=== PATIENT | female | born 1980 | race Two or more races ===

== ENCOUNTER 2018-05-13 17:50 | Outpatient (CLI) | payer MEDICAID ==
[2018-05-13 19:05] LABS: APPEARANCE,URINE SLIGHTLY-CLOUDY; BILIRUBIN,URINE NEGATIVE (NEGATIVE); COLOR,URINE AMBER; GLUCOSE, URINE NEGATIVE (NEGATIVE); KETONES,URINE TRACE mg/dL (NEGATIVE); LEUKOCYTE ESTERASE,URINE NEGATIVE (NEGATIVE); NITRITE,URINE NEGATIVE (NEGATIVE); PROTEIN,URINE 30 mg/dL (NEGATIVE); URINE SPECIFIC GRAVITY 1.033
[2018-05-13 19:06] LABS: AMNISURE (ROM) NEGATIVE (NEGATIVE)
[2018-05-13 19:14] LABS: URINE AMPHETAMINES SCREEN NEGATIVE; URINE BARBITURATES SCREEN NEGATIVE; URINE BENZODIAZEPINES SCREEN NEGATIVE; URINE COCAINE SCREEN NEGATIVE; URINE MARIJUANA (THC) SCREEN NEGATIVE; URINE METHADONE SCREEN NEGATIVE; URINE PHENCYCLIDINE SCREEN NEGATIVE
--- NOTE | 2018-05-13 19:52 | Non Stress Test Report ---
Non Stress Test Datetime Report Generated by CPN: 05/13/2018 19:52 DEMOGRAPHIC Test Number: 1 EGA NST: 32.5 INDICATION Indication for Study: Ordered by Provider URINE RESULTS Urine Protein, NST: Negative Urine Ketones - NST: Positive Urine Glucose - NST: Negative Urine Blood - NST: Negative MONITORING Monitor Explained: Monitor Explained; Test Explained; Patient Verbalized Understanding Time on Monitor: 05/13/2018 18:50 Time off Monitor: 05/13/2018 19:49 NST Duration: 59 NST INTERVENTIONS NST Interventions: PO Hydration Physician Notified NST: Dr. Aman BABY A: [id number] BABY A Movement : Present Contraction Frequency : irregular FHR Baseline : 135 Accelerations : Prolonged Decelerations : None Variability : Moderate 6-25bpm NST Review: Meets Criteria for Reactive NST NST Review and Verified By : ISSAC Perez NST Results: Reactive NST REPORT Report Trigger: Send Report
[2018-05-13] MEDS ORDERED: RINGERS SOLUTION,LACTATED 1,000 ML IV PRN (20:12)
[2018-05-13] MEDS ORDERED: MAG HYDROX/AL HYDROX/SIMETH SUSP 30 ML UDCUP PO ONE ×2 (20:12→21:15)
[2018-05-13] MEDS ORDERED: MAG HYDROX/AL HYDROX/SIMETH SUSP 30 ML UDCUP ONE (20:13)
[2018-05-13 20:27] LABS: T.VAGINALIS (WET MOUNT) NO TRICHOMONAS SEEN; YEAST (WET MOUNT) NO YEAST SEEN
[2018-05-13 20:28] LABS: BACTERIA (WET MOUNT) 4+ BACTERIA SEEN; EPITHELIALS (WET MOUNT) 3+ EPITHELIALS SEEN; WBCS (WET MOUNT) 1+ WBCS SEEN
[2018-05-13 21:56] LABS: CHLAM PCR NOT DETECTED (NOT DETECT); GON PCR NOT DETECTED (NOT DETECT)
== END 2018-05-13 22:13 | disposition home or self-care (01) ==
LOC: LC 17:50
PROVIDERS: ATTEND Obstetrics & Gynecology
PROC: 4A1HXCZ Monitoring of Products of Conception, Cardiac Rate, External Approach (ICD-10-PCS; principal; 2018-05-13)
DX: O47.03 False labor before 37 completed weeks of gestation, third trimester (principal); O36.8330 Maternal care for abnormalities of the fetal heart rate or rhythm, third trimester, not applicable or unspecified; O09.523 Supervision of elderly multigravida, third trimester; Z3A.32 32 weeks gestation of pregnancy
CPT/HCPCS: 59025; 84112; 87210; 81001; 80307; 87491; 87591; J3490

== ENCOUNTER 2018-06-27 10:32 | Inpatient (IN) | payer MEDICAID ==
[2018-06-27 11:24] LABS: ABSOLUTE EOSINOPHILS # (AUTO) 0.1 10^3/uL (0.0-0.6); ABSOLUTE LYMPHOCYTES (AUTO) 2.7 10^3/uL (0.5-4.7); ABSOLUTE MONOCYTES (AUTO) 0.6 10^3/uL (0.1-1.4); ABSOLUTE NEUT (AUTO) 7.9 10^3/uL (1.7-8.2); BASOPHILS % (AUTO) 0.3 % (0-2); EOSINOPHILS % (AUTO) 0.9 % (0-6); HEMOGLOBIN 13.2 g/dL (12.0-15.5); LYMPHOCYTES % (AUTO) 23.6 % (13-45); MEAN CORPUSCULAR HEMOGLOBIN 29.9 pg (27.0-33.4); MEAN CORPUSCULAR HGB CONC 32.9 g/dL (32.0-36.0); MEAN CORPUSCULAR VOLUME 91 fl (80-97); MONOCYTES % (AUTO) 5.4 % (3-13); PLATELET COUNT 224 10^3/uL (150-450); RED BLOOD COUNT 4.41 10^6/uL (3.72-5.28); RED CELL DISTRIBUTION WIDTH 15.9 % (11.5-14.0); SEGMENTED NEUTROPHILS % (AUTO) 69.8 % (42-78); TOTAL CELLS COUNTED % (AUTO) 100 %; WHITE BLOOD COUNT 11.3 10^3/uL (4.0-10.5)
[2018-06-27] MEDS ORDERED: IBUPROFEN 800 MG TABLET ONE (12:10)
--- NOTE | 2018-06-27 12:13 | ER Document Report ---
ED General - General Stated Complaint: LABOR Mode of Arrival: Ambulatory Information source: Patient, Relative, [facility] Records Notes: 38-year-old female at 39 weeks presents via private vehicle in active labor. I was called out to the parking lot where the patient was found in the front seat. Manual exam performed and baby's head felt immediately. Patient was instructed not to push and picked up out of the car placed on a stretcher and ran back to the trauma bay where the head was immediately delivered. TRAVEL OUTSIDE OF THE [place] IN LAST 30 DAYS: No - HPI Onset: Just prior to arrival Onset/Duration: Sudden Quality of pain: Cramping Severity: Severe Associated symptoms: None Exacerbated by: Denies Relieved by: Denies Similar symptoms previously: No Recently seen / treated by doctor: Yes - Related Data Allergies/Adverse Reactions: No Known Allergies Allergy (Verified 05/13/18 18:33) Past Medical History - General Information source: Patient, Relative, [facility] Records - Social History Smoking Status: Unknown if Ever Smoked Frequency of alcohol use: None Drug Abuse: None Lives with: Family Family History: Reviewed & Not Pertinent Patient has suicidal ideation: No Patient has homicidal ideation: No - Medical History Medical History: Negative Past Surgical History: Reports: Hx Section Review of Systems - Review of Systems -: Yes ROS unobtainable due to patient's medical condition Physical Exam - Notes Notes: PHYSICAL EXAMINATION: GENERAL: in active labor, pushing HEAD: Atraumatic, normocephalic. LUNGS: No respiratory distress HEART: Tachycardic ABDOMEN: Gravid Female : Cervix 100% effaced, . Musculoskeletal: Normal range of motion, no pitting or edema. No cyanosis. NEUROLOGICAL: AOx3 SKIN: Warm, Dry, normal turgor, no rashes or lesions noted. Course - Re-evaluation Re-evalutation: 06/28/18 16:10 Procedure: 38-year-old female at 39 weeks presented in active labor. Patient was found in the front seat of her mother's car pushing and . She was placed immediately on a stretcher and brought back to the emergency department. Patient in lithotomy position. Because of the imminent delivery the patient was not able to be prepped and draped in the usual sterile fashion. Patient was asked to push and the head delivered spontaneously. A nuchal cord was checked and none noted, anterior shoulder delivered easily followed by posterior shoulder. OB team arrived at that time. The remainder of the infant was easily delivered and the oropharynx and nasopharynx was bulb suctioned. OB/ [employer] attending clamped and cut the cord. Cord blood obtained. The was passed to the mother and then to the warmer and assessed. Placenta delivered by SCRAP[employer] attending. Pitocin administered. Female born at 10:25 AM 2015. of 9. Female was found to be active with strong pulse, spontaneous respirations , cried immediately, pink in color. Patient and infant transferred to labor and delivery. 06/28/18 16:20 - Laboratory Result Diagrams: 06/28/18 07:58 Discharge - Discharge Condition: Good Disposition: HOME, SELF-CARE Admitting Provider: [facility] Admitted: Labor and Delivery
[2018-06-27] MEDS ORDERED: PROMETHAZINE HCL 25 MG SUPP.RECT PR PRN (12:26)
[2018-06-27] MEDS ORDERED: PROMETHAZINE HCL INJ 25 MG/1 ML VIAL IV PRN (12:26)
[2018-06-27] MEDS ORDERED: GLYCERIN/WITCH HAZEL LEAF 1 EACH MED..PAD TP PRN (12:26)
[2018-06-27] MEDS ORDERED: PSEUDOEPHEDRINE HCL 30 MG TABLET PO PRN (12:26)
[2018-06-27] MEDS ORDERED: MEASLES,MUMPS&RUBELLA VACC/PF 0.5 ML VIAL SUBCUT PRN (12:26)
[2018-06-27] MEDS ORDERED: DIPH/PERTUSS(ACELL)/TETANUS VAC/PF 0.5 ML SYR (>=10YO) IM PRN (12:26)
[2018-06-27] MEDS ORDERED: DIBUCAINE 1% OINTMENT 28 GM TP PRN (12:26)
[2018-06-27] MEDS ORDERED: ACETAMINOPHEN 650 MG SUPP.RECT PR PRN (12:26)
[2018-06-27] MEDS ORDERED: BENZOCAINE/MENTHOL AEROSOL SPRAY 56 ML TOP PRN (12:26)
[2018-06-27] MEDS ORDERED: DIPHENHYDRAMINE HCL 25 MG CAPSULE PO PRN (12:26)
[2018-06-27] MEDS ORDERED: PROMETHAZINE HCL 25 MG TABLET PO PRN (12:26)
[2018-06-27] MEDS ORDERED: OXYTOCIN/NORMAL SALINE 20 UNIT/1,000 ML RTUINJ IV PRN (12:26)
[2018-06-27] MEDS ORDERED: NA PHOS,M-B/NA PHOS,DI-BA (ADULT) 133 ML ENEMA PR PRN (12:26)
[2018-06-27] MEDS ORDERED: MAGNESIUM HYDROXIDE SUSP 30 ML UDCUP PO PRN (12:26)
--- NOTE | 2018-06-27 13:35 | Delivery Summary ---
Del Sum A-C Datetime Report Generated by CPN: 06/27/2018 13:35 DELIVERY PERSONNEL DELIVERY PERSONNEL: [id number] Delivery Doctor:: Susan Newton MD Labor and Delivery Nurse:: Kenan Zamora RN Nursery Nurse:: Hetal Quan RN MATERNAL INFORMATION Delivery Anesthesia: None Medications After Delivery: Pitocin Drip 20 Units/1000ml NSS Estimated Blood Loss (ml): 200 Maternal Complications: Precipitous Labor (<3hrs) Provider Comments: pls see H_P for further details. Delivered by myself in the ER without incident. LABOR SUMMARY EDC: 07/03/2018 00:00 No. Babies in Womb: 1 Attempted: Yes Labor Anesthesia: None LABOR INFORMATION Reason for Induction: Not Applicable Oxytocin: N/A Group B Beta Strep: unknown Antibiotics # of Doses: 0 Antibiotics Time of Last Dose: 0 Name of Antibiotic Given: 0 Steroids Given: None Reason Steroids Not Administered: Not Applicable Other Reason Not Administered: n/a STAGES OF LABOR Stage 3 hr: 0 Stage 3 min: 4 VAGINAL DELIVERY Episiotomy: None Laceration #1: None Laceration Extension #1: N/A Laceration Repair: Not Applicable BABY A INFORMATION Delivery Date/Time: 06/27/2018 10:20 Method of Delivery: Vaginal Born in Route : No : N/A Forceps: N/A Vacuum Extraction: N/A Shoulder Dystocia : No PRESENTATION/POSITION BABY A Presentation: Cephalic Cephalic Presentation: Vertex Vertex Position: Left Occipital Anterior Breech Presentation: N/A PLACENTA INFORMATION BABY A Placenta Delivery Time : 06/27/2018 10:24 Placenta Method of Delivery: Spontaneous Placenta Status: Delivered SCORES BABY A Heart Rate 1 min: >100 bpm Resp Effort 1 min: Good Cry Reflex Irritability 1 min: Cough or Sneeze or Pulls Away Muscle Tone 1 min: Active Motion Color 1 min: Body [place], Extremities Blue Resuscitation Effort 1 min: Tactile Stimulation SCORE 1 MIN: 9 Heart Rate 5 min: >100 bpm Resp Effort 5 min: Good Cry Reflex Irritability 5 min: Cough or Sneeze or Pulls Away Muscle Tone 5 min: Active Motion Color 5 min: Completely [place] Resuscitation Effort 5 min: Tactile Stimulation SCORE 5 MIN: 10 INFORMATION BABY A Gestational Age at Delivery: 39.1 Gestational Status: Full Term- 39- 40.6 Weeks Outcome : Liveborn Infant Condition : Stable Infant Sex: Female IDENTIFICATION BABY A Verification Date/Time: 06/27/2018 10:56 ID Band Number: [id number] Mother's Name Verified: Yes Infant RN Verifying Infant: Kenan Zamora, RN Hetal Kadeem, RN WEIGHT/LENGTH BABY A Infant Birthweight (gm): 2820 Weight (lb): 6 Infant Weight (oz): 3 Length (in): 19.50 Length (cm): 49.53 CORD INFORMATION BABY A No. Cord Vessels: 3 Nuchal Cord : N/A Cord Blood Taken: Yes-For Eval (Mom's Blood Type - or O+) Suction: None ASSESSMENT BABY A Skin to Skin: Yes Skin to Skin Time (min): 90 BABY B INFORMATION : N/A SIGNATURES Signature: with User ID: [email or web address]
[2018-06-27] MEDS: IBUPROFEN 800 MG TABLET PO SCH ×2 (13:51→21:32)
[2018-06-27] MEDS: DOCUSATE SODIUM 100 MG CAPSULE PO SCH (17:32)
[2018-06-27] MEDS: FERROUS SULFATE 325 MG TABLET PO SCH (17:32)
[2018-06-27 17:53] LABS: APPEARANCE,URINE CLEAR; BILIRUBIN,URINE NEGATIVE (NEGATIVE); COLOR,URINE YELLOW; GLUCOSE, URINE NEGATIVE (NEGATIVE); KETONES,URINE NEGATIVE (NEGATIVE); LEUKOCYTE ESTERASE,URINE TRACE (NEGATIVE); NITRITE,URINE NEGATIVE (NEGATIVE); PROTEIN,URINE NEGATIVE (NEGATIVE); URINE SPECIFIC GRAVITY 1.006; UROBILINOGEN,URINE NEGATIVE mg/dL (<2.0)
[2018-06-27 18:12] LABS: URINE AMPHETAMINES SCREEN NEGATIVE; URINE BARBITURATES SCREEN NEGATIVE; URINE BENZODIAZEPINES SCREEN NEGATIVE; URINE COCAINE SCREEN NEGATIVE; URINE MARIJUANA (THC) SCREEN NEGATIVE; URINE METHADONE SCREEN NEGATIVE; URINE PHENCYCLIDINE SCREEN NEGATIVE
[2018-06-27] MEDS: FAMOTIDINE 20 MG TABLET PO SCH (21:31)
[2018-06-28] MEDS: IBUPROFEN 800 MG TABLET PO SCH ×3 (06:15→22:40)
[2018-06-28 08:39] LABS: HEMOGLOBIN 12.3 g/dL (12.0-15.5); MEAN CORPUSCULAR HEMOGLOBIN 30.4 pg (27.0-33.4); MEAN CORPUSCULAR HGB CONC 33.3 g/dL (32.0-36.0); MEAN CORPUSCULAR VOLUME 91 fl (80-97); PLATELET COUNT 210 10^3/uL (150-450); RED BLOOD COUNT 4.05 10^6/uL (3.72-5.28); RED CELL DISTRIBUTION WIDTH 15.9 % (11.5-14.0); WHITE BLOOD COUNT 9.8 10^3/uL (4.0-10.5)
--- NOTE | 2018-06-28 11:21 | PDOC PROGRESS REPORT ---
Subjective-OB Progress Note for:: 06/28/18 Subjective: Pt doing well, no concerns. She reports light bleeding, reg diet and voiding without difficulty. Physical Exam (OB) Vital Signs: Temp Pulse Resp BP Pulse Ox 98.1 F 89 18 118/63 96 06/27/18 19:56 06/27/18 19:56 06/27/18 19:56 06/27/18 19:56 06/27/18 19:56 Intake & Output 06/27/18 06/28/18 06/29/18 06:59 06:59 06:59 Intake Total 650 Balance 650 Weight 73.18 kg - PIH/Pre-Eclampsia DTR's: 2 + Clonus: Negative Headache: Absent Epigastric Pain: No Visual Changes: No - Lochia Lochia Amount: Scant < 10 ml Lochia Color: Rubra/Red - Abdomen Description: Soft Hernia Present: No Fundal Description: Firm, Midline Fundal Height: u/u - u/2 Objective-Diagnostic Laboratory: 06/28/18 07:58 06/27/18 06/27/18 06/27/18 11:00 11:00 17:35 WBC 11.3 H RBC 4.41 Hgb 13.2 Hct 40.0 MCV 91 MCH 29.9 MCHC 32.9 RDW 15.9 H Plt Count 224 Seg Neutrophils % 69.8 Lymphocytes % 23.6 Monocytes % 5.4 Eosinophils % 0.9 Basophils % 0.3 Absolute Neutrophils 7.9 Absolute Lymphocytes 2.7 Absolute Monocytes 0.6 Absolute Eosinophils 0.1 Absolute Basophils 0.0 Urine Color YELLOW Urine Appearance CLEAR Urine pH 7.0 Ur Specific [place] 1.006 Urine Protein NEGATIVE Urine Glucose (UA) NEGATIVE Urine Ketones NEGATIVE Urine Blood LARGE H Urine Nitrite NEGATIVE Ur Leukocyte Esterase TRACE H Blood Type O POSITIVE Antibody Screen NEGATIVE 06/28/18 07:58 WBC 9.8 RBC 4.05 Hgb 12.3 Hct 37.0 MCV 91 MCH 30.4 MCHC 33.3 RDW 15.9 H Plt Count 210 Seg Neutrophils % Lymphocytes % Monocytes % Eosinophils % Basophils % Absolute Neutrophils Absolute Lymphocytes Absolute Monocytes Absolute Eosinophils Absolute Basophils Urine Color Urine Appearance Urine pH Ur Specific [place] Urine Protein Urine Glucose (UA) Urine Ketones Urine Blood Urine Nitrite Ur Leukocyte Esterase Blood Type Antibody Screen Assessment and Plan(PN) - Assessment and Plan (1) Vaginal delivery Is this a current diagnosis for this admission?: Yes (2) Precipitate labor, with delivery Is this a current diagnosis for this admission?: Yes - Time Spent with Patient Time with patient: Less than 15 minutes Medications reviewed and adjusted accordingly: Yes - Disposition Anticipated Discharge: Home Within: within 24 hours
[2018-06-28] MEDS: DOCUSATE SODIUM 100 MG CAPSULE PO SCH ×2 (11:28→18:22)
[2018-06-28] MEDS: FERROUS SULFATE 325 MG TABLET PO SCH ×2 (11:29→18:22)
[2018-06-28] MEDS: FAMOTIDINE 20 MG TABLET PO SCH ×2 (11:29→22:40)
[2018-06-28] MEDS: PRENATAL VITAMIN W DHA CAPSULE PO SCH (11:30)
[2018-06-28] MEDS: SENNOSIDES/DOCUSATE 8.6-50 MG 1 EACH TABLET PO SCH (11:30)
[2018-06-29] MEDS: IBUPROFEN 800 MG TABLET PO SCH ×2 (06:23→13:48)
[2018-06-29 09:15] VITALS: BP 130/77
[2018-06-29] MEDS: SENNOSIDES/DOCUSATE 8.6-50 MG 1 EACH TABLET PO SCH (10:07)
[2018-06-29] MEDS: FAMOTIDINE 20 MG TABLET PO SCH (10:07)
[2018-06-29] MEDS: PRENATAL VITAMIN W DHA CAPSULE PO SCH (10:07)
[2018-06-29] MEDS: DOCUSATE SODIUM 100 MG CAPSULE PO SCH (10:07)
[2018-06-29] MEDS: FERROUS SULFATE 325 MG TABLET PO SCH (10:07)
--- NOTE | 2018-07-15 13:01 | Admission Physical ---
Datetime Report Generated by CPN: 07/15/2018 13:01 CURRENT ADMISSION Chief Complaint: Uterine Contractions Indication for Induction: Not Applicable Admit Impression : Term, Intrauterine Admit Plan: Admit to Unit Admit Plan- Other: patient delivered precipitously in ER. Responded to OB emergency ALLERGIES Medication Allergies: No Medication Allergies: No Known Allergies (05/13/2018) Medication Allergies: No Known Allergies (10/10/2015) Latex: No Latex Allergies Food Allergies: none Environmental Allergies: none OBSTETRICAL HISTORY EDC: 07/03/2018 00:00 : 4 Para: 2 Term: 1 : 1 SAB: 0 IAB: 1 Livin Cesareans: 1 VBACs: 1 Gestational Diabetes: No Infertility: No ART Treatment: Yes IUGR: No Hx Previous C/S: Yes Macrosomia: No Hx Loss/Stillborn: No PIH: No Hx : No Placenta Previa/Abruption: Yes Depression/PP Depression: Yes PTL/PROM: No Post Hemorrhage: No Current Procedures: Ultrasound Obstetrical History Comments: G2- 2013 Placental abruption 28 weeks PPH no meds G3- 2016 [facility] PPD no meds G4- current - AMA SEE RECORDS Alcohol: No Marijuana : No Cocaine: No Other Illicit Drugs: No Cigarettes: Never Smoker. [id number] MEDICAL HISTORY Diabetes: No Blood Transfusion: No Pulmonary Disease (Asthma, TB): No Breast Disease: Yes Hypertension: No [employer] Surgery: No Heart Disease: No Hosp/Surgery: Yes Autoimmune Disorder: No Anesthetic Complications: No Kidney Disease: No Neuro/Epilepsy: No Psychiatric Disorders: No Other Medical Diseases: No Hepatitis/Liver Disease: No Significant Family History: No Varicosities/Phlebitis: No Trauma/Violence : No Thyroid Dysfunction: No Medical History Comments: Lump in left breast surgically removed - 2016, c/s, childbirth, wisdom teeth- at 24 years old, abnormal pap- HPV at 20 years old INFECTIOUS HISTORY Gonorrhea: No Genital Herpes: No Chlamydia: Yes Tuberculosis: No Syphilis: No Hepatitis: No HIV/AIDS Exposure: No Rash or Viral Illness: No HPV: Yes Infectious History Comments: chlamydia 2012, HPV at 20 years old PHYSICAL EXAM General: Normal HEENT: Normal Neurologic: Normal Thyroid: Normal Heart: Normal Lungs: Normal Breast: Normal Back: Normal Abdomen: Normal Genitourinary Exam: Normal Extremities: Normal DTRs: Normal Pelvic Type: Adequate Vital Signs: Reviewed; Within Normal Limits [facility] Amniotic Fluid Color: Clear FETUS A EGA: 39.1 Admit Comment: on arrival to ER, patient noted with head delivered. Proceeded with rest of delivery in a normal expeditious manner. Infant apgars of 9/9. PLANS FOR LABOR AND DELIVERY Labor and Delivery: None Pain Management: Natural Feeding Preference: Breast Benefit of Breast Feed Discussed: Yes Circumcision: N/A INFORMED CONSENT Signature: with User ID: [email or web address]
== END 2018-06-29 14:30 | disposition home or self-care (01) | DRG 775 ==
LOC: LR 10:32 → 2S 13:24
PROVIDERS: ADMIT Obstetrics & Gynecology; ATTEND Obstetrics & Gynecology
PROC: 10E0XZZ Delivery of Products of Conception, External Approach (ICD-10-PCS; principal; 2018-06-27)
DX: O62.3 Precipitate labor (principal); O34.219 Maternal care for unspecified type scar from previous cesarean delivery; Z37.0 Single live birth; Z3A.39 39 weeks gestation of pregnancy
CPT/HCPCS: 36415; 80307; 81005; 85025; 85027; 86592; 86850; 86900; 86901; J3490